=== PATIENT | male | born 1960 | race Caucasian/White ===

== ENCOUNTER 2019-11-20 11:29 | Inpatient (IN) ==
[2019-11-20] MEDS ORDERED: ASPIRIN PO ONE (12:19)
--- NOTE | 2019-11-20 12:22 | EKG Report ---
Test Performed on : 11/20/2019 11:51:36 AM Test Reason : CP Blood Pressure : / mmHG Vent. Rate : 089 BPM Atrial Rate : 089 BPM P-R Int : 134 ms QRS Dur : 090 ms QT Int : 354 ms P-R-T Axes : 079 052 054 degrees QTc Int : 430 ms Normal sinus rhythm. with sinus arrhythmia. Normal ECG No previous ECGs available Unconfirmed Result
[2019-11-20 12:41] LABS: BASO# 0.11 X1000 (0.0-0.2); BASO% 1.1 % (0.0-0.8); EOS# 0.14 X1000 (0.0-0.7); EOS% 1.4 % (0.0-10.0); HEMATOCRIT 51.2 % (42.0-52.0); HEMOGLOBIN 17.1 g/dL (14.0-18.0); IMM GRAN# 0.03 X1000 (0.0-0.04); IMM GRAN% 0.3 % (0.0-0.5); LYMPH# 2.88 X1000 (1.2-3.4); LYMPH% 28.9 % (20.5-51.1); MCH 31.8 PG (27-31); MCHC 33.4 g/dL (33-37); MCV 95.2 FL (81-99); MONO# 0.81 X1000 (0.11-0.59); MONO% 8.1 % (1.7-9.3); NEUT% 60.2 % (42.2-75.2); PLT 278 X1000 (130-400); RBC 5.38 XMIL (4.7-6.1); RDW 13.6 % (11.5-14.5); WBC 9.97 X1000 (4.8-10.8)
--- NOTE | 2019-11-20 12:42 | Diag Imaging Result Doc PS360 ---
EXAM: CHEST-2 VIEWS 11/20/2019 HISTORY: cp TECHNIQUE: PA and lateral chest COMMENT: There are calcified granulomatous nodes in the right tracheobronchial and hilar region. The heart size and primary vascularity are within normal limits. The lungs are otherwise clear. IMPRESSION: Granulomatous changes. No evidence of acute disease. Electronically signed by Brendon Quesada 11/20/2019 12:40 PM
[2019-11-20 12:54] LABS: INR 1.01; PROTIME 13.4 Seconds (11.0-16.0)
[2019-11-20 12:55] LABS: PTT 31.3 Seconds (22.3-41.8)
[2019-11-20 13:16] LABS: AGAP 14; ALB/GLOB RATIO 1.5; ALBUMIN 4.3 g/dL (3.5-5.0); ALKALINE PHOSPHATASE 98 U/L (32-122); BUN 15 mg/dL (8-22); CALCIUM 9.7 mg/dL (8.8-10.2); CHLORIDE 103 mmol/L (98-107); CK PROFILE 102 U/L (24-204); COSMO 276; CREATININE 1.1 mg/dL (0.7-1.2); ESTIMATED GFR > 60; GLUCOSE 98 mg/dL (70-104); GOT 21 U/L (10-34); GPT 27 U/L (10-44); POTASSIUM 4.6 mmol/L (3.5-5.1); SODIUM 138 mmol/L (136-145); TCO2 21 mmol/L (25-35); TOTAL PROTEIN 7.2 g/dL (6.3-8.3)
--- NOTE | 2019-11-20 16:56 | EKG Report ---
Test Performed on : 11/20/2019 4:45:41 PM Test Reason : CP Blood Pressure : / mmHG Vent. Rate : 082 BPM Atrial Rate : 082 BPM P-R Int : 144 ms QRS Dur : 074 ms QT Int : 360 ms P-R-T Axes : 075 050 054 degrees QTc Int : 420 ms Normal sinus rhythm. Normal ECG When compared with ECG of 20-NOV-2019 11:51, (Unconfirmed) No significant change was found Unconfirmed Result
--- NOTE | 2019-11-20 19:22 | PROVIDER DOCUMENTATION ---
HPI-Chest Pain - General Chief Complaint: Chest Pain Stated Complaint: CP,JAY Time Seen by Provider: 11/20/19 14:44 Source: patient Allergies/Adverse Reactions: Patient Allergies Allergy/AdvReac Type Severity Reaction Status Date / Time acetaminophen [From Lortab] Allergy NAUSEA/VOMI Verified 11/29/18 19:31 TING bee venom protein (honey bee) Allergy ANAPHYLAXIS Verified 11/29/18 19:32 hydrocodone [From Lortab] Allergy NAUSEA/VOMI Verified 11/29/18 19:31 TING Home Medications: Home Medication List Medication Instructions Recorded Confirmed Last Taken Type Epinephrine Auto Injector [Epipen] 0.3 mg IM DIRECTED 11/29/18 11/29/18 Unknown History Rivaroxaban [Xarelto] 15 mg PO BID 21 Days #41 tab 11/29/18 Unknown Rx Rivaroxaban [Xarelto] 20 mg PO DAILY 30 Days #30 tab 11/29/18 Unknown Rx - History of Present Illness-CP Nature of Presenting Problem: 59 yo male presents to [facility] ED c/o mid sternal chest pain associated with headache. He denies dyspnea. His headache and chest pain are both sharp in nature and his headache is located in the frontal area. His chest pain has been intermittent since Wednesday night. He has cardiac risk factors without any PCP. He notes hyperlipidemia and smoking and family history of early heart disease in his mother. Most recent stress test was years ago and benign according to the patient. He denies any numbness or weakness or tingling. He did not take aspirin prior to arrival. Chest pain actively ongoing while in the ED. Location: reports: substernal Chest Pain Radiation: reports: no radiation Quality of Pain: reports: sharp Severity in ED: moderate Onset/Duration: 4 days ago Timing: still present Context/Activities at Onset: reports: light activity Modifying Factors: worse with: exercise Associated Symptoms: reports: headache. denies: abdominal pain, dizziness, nausea, syncope, vomiting Nitro Today/Relief: no nitro taken today Aspirin Treatment Today: no aspirin today Prior Chest Pain/Cardiac Workup: reports: stress test (years ago was negative) Similar Symptoms Previously?: No Recently Seen Here or By Another Healthcare Provider: No Review of Systems - Adult - REVIEW OF SYSTEMS - ADULT Constitutional: reports: no symptoms reported. denies: fever Eyes: reports: no symptoms reported Ears, Nose, Mouth & Throat: reports: no symptoms reported Cardiovascular: reports: chest pain. denies: heart murmur, irregular heart rate, syncope Respiratory: reports: no symptoms reported. denies: shortness of breath Gastrointestinal: reports: no symptoms reported Genitourinary: reports: no symptoms reported Musculoskeletal: reports: no symptoms reported Integumentary: reports: no symptoms reported Neurological: reports: no symptoms reported. denies: dizziness/vertigo, numbness, seizure, syncope Psychiatric: reports: no symptoms reported Endocrine: reports: no symptoms reported Hematologic/Lymphatic: reports: no symptoms reported Allergic/Immunologic: reports: no symptoms reported All Other Systems: Reviewed and Negative Past History - Adult - PAST MEDICAL HISTORY-ADULT Review of Records: reports: Old Records Reviewed Major Childhood Illnesses: reports: denies history Cardiovascular: reports: denies history Respiratory: reports: denies history Gastrointestinal: reports: denies history Obstetrical/Gynecological: reports: denies history Genitourinary: reports: denies history Musculoskeletal: reports: other (back pain) Neurological: reports: denies history Endocrine/Immune: reports: denies history Other Conditions: reports: denies history - PRIOR SURGERIES/PROCEDURES Surgical/Procedure History: reports: none - IMMUNIZATION STATUS Childhood Immunizations: See Nurse Assessment Flu Vaccine: See Nurse Assessment - FAMILY HISTORY Family History: reviewed, not pertinent - SOCIAL HISTORY Smoking: quit greater than 1 year Substance Use: none/never Alcohol Use Frequency: never Living Situation: family Physical Exam-General - PHYSICAL EXAM-ADULT Initial Vital Signs Reviewed: Yes - CONSTITUTIONAL General Appearance: appears well - EYES Eyes: PERRL/EOMI - HEAD, EARS, NOSE, MOUTH & THROAT HENMT: normocephalic/atraumatic - NECK Neck: non-tender - RESPIRATORY Respiratory: chest non-tender, lungs clear, normal breath sounds - CARDIOVASCULAR Cardiovascular: normal peripheral pulses, regular rate, rhythm - GASTROINTESTINAL (ABDOMEN) Abdominal Exam: non tender - LYMPHATIC Lymphatic: no adenopathy - MUSCULOSKELETAL Back Exam: normal inspection, no CVA tenderness Extremity: normal range of motion - SKIN Integumentary: normal color - NEUROLOGIC Neurologic: billet inspector II-XII nml as tested, grossly normal - PSYCHIATRIC Psych/Mental Status: normal mood/affect, oriented x 3 - HEART Score HEART Score: History: Moderately Suspicious HEART Score: ECG: Normal HEART Score: Age: 45-65 Years HEART Score: Risk Factors for Atherosclerotic Disease: > or = 3 Risk Factors or History of Atherosclerotic Disease HEART Score: Troponin: < or = Normal Limit Total HEART Score:: 4 Progress - PLAN OF CARE/RESULTS Progress/Plan/Lab Results: Vital Signs - 8 hr 11/20/19 11:47 11/20/19 17:08 Temperature 97.8 F Pulse Rate 80 88 Respiratory Rate 20 18 Blood Pressure 133/86 147/84 O2 Sat by Pulse Oximetry 94 L 97 Laboratory Results - last 24 hr 11/20/19 11/20/19 11/20/19 12:25 12:25 12:25 WBC 9.97 RBC 5.38 Hgb 17.1 Hct 51.2 MCV 95.2 MCH 31.8 H MCHC 33.4 RDW Std Deviation 13.6 Plt Count 278 MPV 10.0 Immature Gran % (Auto) 0.3 Neut % (Auto) 60.2 Lymph % (Auto) 28.9 [place] % (Auto) 8.1 Eos % (Auto) 1.4 Baso % (Auto) 1.1 H Immature Gran # (Auto) 0.03 Neut # (Auto) 6.00 Lymph # (Auto) 2.88 [place] # (Auto) 0.81 H Eos # (Auto) 0.14 Baso # (Auto) 0.11 PT INR PTT (Actin FS) Sodium 138 Potassium 4.6 Chloride 103 Carbon Dioxide 21 L Anion Gap 14 BUN 15 Creatinine 1.1 Estimated GFR/1.73 m2 > 60 BUN/Creatinine Ratio 14 Glucose 98 Calculated Osmolality 276 Calcium 9.7 Total Bilirubin 0.30 AST 21 ALT 27 Alkaline Phosphatase 98 Creatine Kinase 102 Troponin T High Sens Dna-P-Ctrpvduznsq Pept 12 Total Protein 7.2 Albumin 4.3 Globulin 2.9 Albumin/Globulin Ratio 1.5 11/20/19 11/20/19 11/20/19 12:25 12:25 17:11 WBC RBC Hgb Hct MCV MCH MCHC RDW Std Deviation Plt Count MPV Immature Gran % (Auto) Neut % (Auto) Lymph % (Auto) [place] % (Auto) Eos % (Auto) Baso % (Auto) Immature Gran # (Auto) Neut # (Auto) Lymph # (Auto) [place] # (Auto) Eos # (Auto) Baso # (Auto) PT 13.4 INR 1.01 PTT (Actin FS) 31.3 Sodium Potassium Chloride Carbon Dioxide Anion Gap BUN Creatinine Estimated GFR/1.73 m2 BUN/Creatinine Ratio Glucose Calculated Osmolality Calcium Total Bilirubin AST ALT Alkaline Phosphatase Creatine Kinase Troponin T High Sens < 6 < 6 [id number] Pept Total Protein Albumin Globulin Albumin/Globulin Ratio Orders Category Date Time Status Cardiac Monitoring DIRECTED Care 11/20/19 12:20 Active Oxygen Therapy- ED Nursing DIRECTED Care 11/20/19 12:20 Active Saline Loc NOW Care 11/20/19 12:20 Active CHEST-2 VIEWS [RAD] Stat Exams 11/20/19 12:20 Completed CBC WITH ELECTRONIC DIFF [HEME] Stat Lab 11/20/19 12:25 Completed CK PROFILE [SP CHEM] Stat Lab 11/20/19 12:25 Completed COMPREHENSIVE METABOLIC PANEL [CHEM] Stat Lab 11/20/19 12:25 Completed PRO B-NATRIURETIC PEPTIDE Stat Lab 11/20/19 12:25 Completed PROTIME WITH INR [COAG] Stat Lab 11/20/19 12:25 Completed PTT [COAG] Stat Lab 11/20/19 12:25 Completed TROPONIN T HIGH SENSITIVITY Stat Lab 11/20/19 12:25 Completed TROPONIN T HIGH SENSITIVITY Stat Lab 11/20/19 17:11 Completed Aspirin Med 11/20/19 12:19 Discontinued 325 mg PO NOW ONE CP/SOB/Palp >45 yrs of Age Stat Oth 11/20/19 12:19 Ordered EKG [EKG] Stat Ther 11/20/19 12:20 Draft EKG [EKG] Stat Ther 11/20/19 16:29 Draft Noted HEART score of 4 due to age and risk factors and history. No recent cardiac work up. Proceed to observation admission with Dr. Estevez. Given aspirin for chest pain with mild interval improvement. Benign EKG and troponin x 2 negative. Result Diagrams: 11/20/19 12:25 11/20/19 12:25 - EKG 1 Time of EKG reading by physician:: 16:45 EKG Read and Signed by:: Michael Zimmerman EKG Interpretation (*Must complete 3 of following elements*): Normal Rate: 82 Rhythm: NSR [place]: normal QRS: normal CO Interval: normal ST Wave: normal Prior EKG Comparison: unchanged from prior - XRAY 1 XRAY Study: Chest Impression: See EMR Report (EXAM: CHEST-2 VIEWS 11/20/2019 HISTORY: cp TECHNIQUE: PA and lateral chest COMMENT: There are calcified granulomatous nodes in the right tracheobronchial and hilar region. The heart size and primary vascularity are within normal limits. The lungs are otherwise clear. IMPRESSION: Granulomatous changes. No evidence of acute disease. Electronically signed by Brendon Quesada 11/20/2019 12:40 PM) Departure - Departure Date of Disposition Decision: 11/20/19 Time of Disposition Decision: 19:26 DIAGNOSIS: Atypical chest pain, Tobacco use, Dyslipidemia Disposition: ADMITTED INPATIENT 09 Certified Medical Emergency: Emergent Condition: Good Referrals and Follow-Ups: None,PCP [Primary Care Provider] - - Critical Care Note This patient required my direct & personal management of CC.: No Attestation - Physician/ KEYUR Attestation Patient care was provided by Advanced Practice Provider:: No The physician spent face to face time with patient:: Yes Advanced Practice Provider documentation review:: Supervising physician onsite and consulted in the evaluation and care of this patient. The physician did have a face to face encounter with the patient.
[2019-11-20] MEDS ORDERED: NITROGLYCERIN TOP ONE (19:27)
--- NOTE | 2019-11-20 21:11 | HISTORY AND PHYSICAL ---
CHIEF COMPLAINT: Chest pain. HISTORY OF PRESENT ILLNESS: This is a 59-year-old white male with history of no major medical problems, but who comes in with chest pain. The patient describes the chest pain as sharp for the most part, right in the center of his chest, does not radiate. There is no alleviating or aggravating factors. He has had chest pain workup about three years ago when he lived in [place], [place]. Testing was negative. Not quite sure the extent of testing, but in any case patient's workup here was fairly negative, but he was placed in observation for chest pain workup. His EKG was negative. I think his heart score is around 2 to 3. He does have family history. He does smoke. He does not use aspirin. PAST MEDICAL HISTORY: Possible hypertension, but it has not been controlled. No diabetes. No dyslipidemia. No heart disease. PAST SURGICAL HISTORY: Denies. FAMILY HISTORY: Mother had heart disease in her 30s or 40s, according to him. She is still alive in her 90s and has Alzheimer's for which they are taking care of her. MEDICATIONS: Interestingly enough here he is supposed to be on Xarelto. ALLERGIES: Allergies to Lorcet, which causes nausea. SOCIAL HISTORY: He smokes up to half a pack a day. He has done that for about 46 years, so I am going to say he has got a 23 pack year history of smoking. REVIEW OF SYSTEMS: Otherwise negative x a 10 point review of systems. LABORATORY DATA: His two troponins are completely normal. ProBNP is normal. PHYSICAL EXAM: VITAL SIGNS: Blood pressure is 147/84, heart rate 88, respiratory rate 18, temperature 97.8 degrees. GENERAL: A well-developed male, no acute distress. HEENT: Head exam was normocephalic, atraumatic. Eye exam: Pupils equal, round, reactive to light. Extraocular moves were intact. Ear, nose and throat exam: He had moist mucous membranes. NECK: Exam was supple. CARDIOVASCULAR: Regular rate and rhythm. No murmurs, gallops, or rubs. PULMONARY: Bilateral breath sounds clear to auscultation. GASTROINTESTINAL: Abdomen was soft, nontender, nondistended. Bowel sounds are positive. EXTREMITIES: No clubbing or cyanosis. LYMPHATICS: No peripheral edema. NEUROLOGICAL: Exam was nonfocal. DIAGNOSTIC DATA: EKG did not show ischemic changes. The rest of his labs look pretty normal. X-ray clear. PROBLEM LIST: This is a 59-year-old white male with history of hypertension, most likely undiagnosed, here for atypical chest pain, normal EKG, positive family history, and smoker. We will place in observation for chest pain rule out and do a Lexiscan and echo tomorrow. He does report some lower extremity edema. Rule out chest pain. We will get a D-dimer to make sure there is no issues there, and we will consider starting lisinopril for his blood pressure versus losartan. We will continue to monitor very closely. cc: Zachary Estevez MD
[2019-11-20] MEDS ORDERED: MORPHINE IV ONE (22:08)
[2019-11-20] MEDS ORDERED: ASPIRIN ONE (22:17)
[2019-11-20] MEDS ORDERED: NS 1,000 ML IV SCH (23:34)
[2019-11-20] MEDS ORDERED: TYLENOL PO PRN (23:34)
[2019-11-20] MEDS ORDERED: ZOFRAN IV PRN (23:34)
[2019-11-20] MEDS ORDERED: NICODERM PATCH TD PRN (23:34)
--- NOTE | 2019-11-21 04:55 | EKG Report ---
Test Performed on : 11/21/2019 00:43:26 AM Test Reason : cp Blood Pressure : / mmHG Vent. Rate : 104 BPM Atrial Rate : 104 BPM P-R Int : 164 ms QRS Dur : 058 ms QT Int : 314 ms P-R-T Axes : 071 053 071 degrees QTc Int : 412 ms Sinus tachycardia. Otherwise normal ECG When compared with ECG of 20-NOV-2019 16:45, (Unconfirmed) No significant change was found Confirmed by Ryan Nice MD ([id number]) on 11/21/2019 7:24:35 AM
[2019-11-21 06:58] LABS: BASO# 0.04 X1000 (0.0-0.2); BASO% 0.4 % (0.0-0.8); EOS# 0.23 X1000 (0.0-0.7); EOS% 2.5 % (0.0-10.0); HEMATOCRIT 45.4 % (42.0-52.0); HEMOGLOBIN 15.1 g/dL (14.0-18.0); IMM GRAN# 0.05 X1000 (0.0-0.04); IMM GRAN% 0.5 % (0.0-0.5); LYMPH% 28.5 % (20.5-51.1); MCH 32.3 PG (27-31); MCHC 33.3 g/dL (33-37); MCV 97.2 FL (81-99); MONO# 0.69 X1000 (0.11-0.59); MONO% 7.6 % (1.7-9.3); MPV 10.3 FL (7.4-10.4); NEUT# 5.52 X1000 (1.4-6.5); NEUT% 60.5 % (42.2-75.2); PLT 271 X1000 (130-400); RBC 4.67 XMIL (4.7-6.1); RDW 13.7 % (11.5-14.5); WBC 9.13 X1000 (4.8-10.8)
[2019-11-21 07:31] LABS: AGAP 11; ALB/GLOB RATIO 1.2; ALBUMIN 3.5 g/dL (3.5-5.0); ALKALINE PHOSPHATASE 78 U/L (32-122); BUN 20 mg/dL (8-22); CALCIUM 8.3 mg/dL (8.8-10.2); CHLORIDE 104 mmol/L (98-107); COSMO 281; CREATININE 1.1 mg/dL (0.7-1.2); ESTIMATED GFR > 60; GLUCOSE 105 mg/dL (70-104); GOT 16 U/L (10-34); GPT 22 U/L (10-44); POTASSIUM 3.9 mmol/L (3.5-5.1); SODIUM 139 mmol/L (136-145); TCO2 24 mmol/L (25-35); TOTAL BILIRUBIN 0.29 mg/dL (0.20-1.00); TOTAL PROTEIN 6.4 g/dL (6.3-8.3)
[2019-11-21] MEDS ORDERED: LEXISCAN ONE (08:17)
--- NOTE | 2019-11-21 14:57 | Diag Imaging Result Document ---
PROCEDURE NAME: MYOCARDIAL PERF SCAN, STR/REST - 11/21/2019 SUMMARY: The patient was administered 13.8 mCi of technetium-99m sestamibi, after which resting cardiac images were obtained. The patient was subsequently administered Lexiscan 0.4 mg intravenously, after which the heart rate went from 82 beats per minute to 101 beats per minute, and the blood pressure went from 122/71 to 110/84. With Lexiscan, the patient denied chest discomfort. Following the administration of Lexiscan, the patient was administered 36.9 mCi of technetium-99m sestamibi, after which gated stress cardiac images were obtained. Baseline ECG demonstrated sinus rhythm. Per Lexiscan, there were no diagnostic ST-segment changes. SPECT images were reconstructed in the short, horizontal long, and vertical long axis. Review of these images demonstrated mildly diminished activity in the inferior wall on stress images, which appears similar on resting images. No significant reversibility is evident. Gated images demonstrate a calculated left ventricular ejection fraction of 66% with symmetrical wall motion/thickening. CONCLUSIONS: 1. Adequate response to Lexiscan. 2. Clinically negative for chest pain. 3. Electrocardiographically negative for Lexiscan-induced myocardial ischemia. 4. Lexiscan sestamibi images demonstrate fixed mildly diminished activity in the inferior wall with corresponding preserved regional wall motion, most consistent with diaphragm attenuation artifact. There is no scintigraphic evidence of inducible myocardial ischemia. Normal left ventricular systolic function demonstrated. cc: MD Zachary Ahn MD
[2019-11-21] MEDS ORDERED: ULTRAM PO ONE (15:58)
[2019-11-21 17:19] VITALS: BP 139/78
--- NOTE | 2019-11-21 22:46 | ECHO REPORT ---
ORDER DATE: 11/21/2019 MEASUREMENTS: Septal thickness 1.0, left ventricular internal diameter in diastole 4.0, left ventricular posterior wall thickness 0.8, left ventricular internal diameter systole 2.5, aortic root 3.1, left atrium 3.3. SUMMARY: 1. Technically difficult study due to limited acoustic window quality. 2. Aortic valve is trileaflet and opens normally on 2-dimensional images. Peak gradient across aortic valve is less than 10 mmHg. Mitral and tricuspid valves are without evidence of structural abnormality while pulmonic valve is not well demonstrated. The aortic root is normal size. 3. Normal left ventricular dimensions demonstrated. Estimated left ejection fraction appears to be at least 60%. No regional wall motion abnormality is evident. Left atrium, right atrium, right ventricle are normal size with grossly preserved right ventricular systolic function. 4. No pericardial effusion. 5. Appearance of inferior vena cava suggests normal central venous pressure. cc: MD Zachary Ahn MD
--- NOTE | 2019-11-22 05:07 | DISCHARGE SUMMARY ---
ADMISSION DATE: 11/20/2019 DISCHARGE DATE: 11/21/2019 PROCEDURES: None. CONSULTATIONS: None. ADMISSION DIAGNOSIS: Chest pain. DISCHARGE DIAGNOSES: 1. Chest pain. 2. Uncontrolled newly diagnosed hypertension. HISTORY: Briefly, this is a 59-year-old male presenting with atypical chest pain. No clear association. He has no history although likely has hypertension. He was placed in observation. He had serial cardiac enzymes which were negative. We pursued a Lexiscan which was unremarkable, it did not show any clear evidence of myocardial ischemia. He was felt to be stable and discharged in stable condition. He did have headache and persistent blood pressure issues with blood pressure 115/72. Discharge condition is stable. We discharged him on Norvasc 5 and Tums as needed. Follow up with his PCP. Continue treatment. cc: Zachary Estevez MD
== END 2019-11-21 17:50 | disposition home or self-care (01) | DRG 313 ==
LOC: ED 11:29 → 4N 11:29 → OBSVTOIN 21:45
PROVIDERS: ATTEND Internal Medicine